=== PATIENT | female | born 1980 | race Caucasian/White ===

== ENCOUNTER 2023-12-23 09:32 | Emergency (ER) | payer MEDICAID, OTHER ==
[~2023-12-23] VITALS: Ht 167.6 cm; Wt 100.0 kg
[2023-12-23 09:47] VITALS: O2SAT 98
[2023-12-23 10:27] LABS: BASOPHILS % 0.6 % (0.0-2.0); EOSINOPHILS % 2.1 % (0.0-5.0); HEMOGLOBIN. 13.9 g/dL (12.0-16.0); LYMPHOCYTES % 25.7 % (20.0-50.0); MEAN CORPUSCULAR HEMOGLOBIN 28.9 pg (28.0-32.0); MEAN CORPUSCULAR HGB CONC 33.1 g/dL (31.0-37.0); MEAN CORPUSCULAR VOLUME 87.2 fL (81.0-99.0); MEAN PLATELET VOLUME 7.6 fl (7.4-10.4); MONOCYTES % 7.3 % (2.0-8.0); NEUTROPHILS % 64.3 % (40.0-76.0); PLATELET 324 x1000/uL (130-400); RED BLOOD CELL COUNT 4.82 mill/uL (4.2-5.4); RED CELL DISTRIBUTION WIDTH 14.1 % (11.6-14.6); WHITE BLOOD COUNT 7.9 x1000/uL (4.5-11.0)
[2023-12-23 10:34] LABS: CARBON DIOXIDE 25 mEq/L (21-32); CHLORIDE 106 mEq/L (98-107); POTASSIUM 4.7 mEq/L (3.5-5.1); SODIUM 135 mEq/L (136-145)
[2023-12-23 10:35] LABS: CALCIUM 8.9 mg/dL (8.7-10.4)
[2023-12-23 10:39] LABS: HCG SCREEN NEGATIVE
[2023-12-23 10:40] LABS: CREATININE 0.9 mg/dL (0.6-1.0); GLUCOSE 229 mg/dL (70-105); UREA NITROGEN BLOOD 9 mg/dL (9-23)
[2023-12-23 10:41] LABS: ALANINE AMINOTRANSFERASE 19 IU/L (10-49)
[2023-12-23 10:42] LABS: ALBUMIN 4.5 g/dL (3.2-4.8); ASPARTATE AMINOTRANSFERASE 16 IU/L (<34); BILIRUBIN DIRECT 0.1 mg/dL (<=3.0); BILIRUBIN TOTAL 0.6 mg/dL (0.1-1.0); PROTEIN TOTAL 7.8 g/dL (6.0-8.3); TROPONIN I HIGH SENSITIVITY < 4 ng/L (3.0-34)
[2023-12-23 10:44] LABS: THYROID STIMULATING HORMONE 1.09 uIU/mL (0.55-4.78)
[2023-12-23] MEDS: MAGNESIUM/ALUMINUM HYDROXIDE/SIMETHICONE 30ML UDC PO ONE (11:11)
[2023-12-23] MEDS: FAMOTIDINE 20MG TABLET PO ONE (11:11)
[2023-12-23 12:36] VITALS: BP 118/64; PULSE 75; RESP 12; TEMP 37.00296; O2SAT 99
== END 2023-12-23 12:37 | disposition home or self-care (01) ==
LOC: ER 09:32
DX: R06.02 Shortness of breath (principal); E11.9 Type 2 diabetes mellitus without complications; Z20.822 Contact with and (suspected) exposure to COVID-19; Z88.5 Allergy status to narcotic agent; Z98.890 Other specified postprocedural states
CPT/HCPCS: 80076; 80048; 84703; 83880; 84443; 85025; 84484; 36415; 71045; 93005; 99285; 87426; Z7610 ×2